=== PATIENT | male | born 1985 | race Asian ===

== ENCOUNTER 2018-02-20 15:35 | Emergency (ER) | payer OTHER, SELFPAY ==
[2018-02-20] VITALS (8 sets, daily range): BP systolic 119–162; BP diastolic 70–101; PULSE 75–111; RESP 12–22; TEMP 36.7; O2SAT 94–100
--- NOTE | 2018-02-20 16:56 | ED.AMS ---
HPI - Altered Mental Status General Chief Complaint: Urogenital-Male Stated Complaint: Lower Leg Infection/Edema Time Seen by Provider: 02/20/18 15:55 Source: EMS Mode of arrival: EMS Limitations: language barrier and altered mental status History of Present Illness HPI narrative: Patient is a 33-year-old male arrived by EMS. Extremely difficulty obtaining the patient's history. The patient only speaks Algerian. His mother only speaks Algerian. Full what I could attempt to find out the mother called 911 this morning for 2 reasons. She was concerned about his lower extremities and also his genitals and needing evaluation but she was also concerned that he is ?crazy ?and is being violent. This information was obtained secondary to using the Algerian translation line. During this time the patient was unwilling to come into the room to be evaluated and also was unwilling to talk with us through the translation line. Related Data Home Medications Medication Instructions Recorded Confirmed carbamazepine 200 mg PO TID 02/20/18 02/20/18 olanzapine 10 mg PO DAILY 02/20/18 02/20/18 risperidone 2 mg PO TID 02/20/18 02/20/18 sulfamethoxazole-trimethoprim 1 tab PO BID 02/20/18 02/20/18 [Bactrim DS] terbinafine HCl 250 mg PO DAILY 02/20/18 02/20/18 Allergies Allergy/AdvReac Type Severity Reaction Status Date / Time No Known Drug Allergies Allergy Verified 02/20/18 19:24 Review of Systems Review of Systems unobtainable due to mental status Exam Initial Vital Signs Initial Vital Signs: Vital Signs Temperature 98.1 F 02/20/18 18:23 Pulse Rate 111 H 02/20/18 18:23 Respiratory Rate 22 02/20/18 18:23 Blood Pressure 162/101 H 02/20/18 18:23 Pulse Oximetry 100 02/20/18 18:23 Const General: No cooperative Orientation: alert and awake Limitations: language barrier HENMT Head: normal to inspection and normocephalic Resp Effort & Inspection: normal respiratory effort Cardio Rate: tachycardic GI Inspection: non-distended Palpation: soft Other: Patient with significantly swollen scrotum and penis. His the size of a small watermelon. Is very firm to the touch. Erythematous. No drainage. Unable to palpate testicles. Skin Other: Patient with chronic stasis changes to bilateral lower extremities. Has what appears to be purulent discharge dried around his toes. Is foul smelling. No open sores. Neuro General: alert, awake and moves all extremities Other: Unable to obtain ate neuro exam secondary to the patient's willingness/ability to participate in the exam Extrem Other: Patient moves all 4 extremities. Has bilateral lower extremity non pitting edema from the hips to the toes Psych Appearance: disheveled Speech and Movement: agitated Mood: angry Affect: irritable affect Attitude: not cooperative Other: Difficult to obtain secondary to language barrier and patient's willingness to interact with the exam Course Orders Ordered: ED Orders 02/20/18 17:10 B Type Natriuretic Peptide Stat C-Reactive Protein Quant Stat Complete Blood Count AUTO DIFF Stat Comprehensive Metabolic Panel Stat Erythrocyte Sedimentation Rate Stat Lactate (Lactic Acid) Stat Lipase Stat Partial Thromboplastin Time Stat Prothrombin Time INR Stat 02/20/18 18:20 Urinalysis and Microscopic Stat Urine Drug Screen, Rapid Stat 02/20/18 18:30 CT abdomen pelvis w con Stat 02/20/18 18:45 Blood Culture Stat 02/20/18 19:14 XR chest 1V Stat Lorazepam (Ativan) 1 mg IV Q4HR PRN PRN Reason: Anxiety Discontinued Medications Diphenhydramine HCl (Benadryl) 50 mg IV NOW ONE Stop: 02/20/18 18:31 Last Admin: 02/20/18 18:34 Dose: 50 mg Diphenhydramine HCl (Benadryl) 50 mg IM NOW ONE Stop: 02/20/18 18:34 Last Admin: 02/20/18 18:34 Dose: 50 mg Furosemide (Lasix) 40 mg IV NOW ONE Stop: 02/20/18 20:34 Last Admin: 02/20/18 20:37 Dose: 40 mg Haloperidol (Haldol) 5 mg IM NOW ONE Stop: 02/20/18 18:31 Last Admin: 02/20/18 18:32 Dose: 5 mg Lorazepam (Ativan) 2 mg IM NOW ONE Stop: 02/20/18 18:30 Last Admin: 02/20/18 18:32 Dose: 2 mg Morphine Sulfate (Morphine) 4 mg IV NOW ONE Stop: 02/20/18 19:25 Last Admin: 02/20/18 19:58 Dose: 4 mg Olanzapine (Zyprexa Zydis) 20 mg PO NOW ONE Stop: 02/20/18 18:29 Last Admin: 02/20/18 18:31 Dose: 20 mg Vital Signs - 8 hr 02/20/18 18:23 02/20/18 19:45 02/20/18 20:03 Temperature 98.1 F Pulse Rate 111 H 94 H 88 Respiratory Rate 22 14 12 Blood Pressure [Right Arm] 162/101 H 145/100 H 129/90 Pulse Oximetry 100 96 96 02/20/18 20:28 02/20/18 20:48 Temperature Pulse Rate 87 87 Respiratory Rate 14 18 Blood Pressure [Right Arm] 132/86 Pulse Oximetry 95 94 MDM - Altered Mental Status Lab Data Attestation: I reviewed the patient's lab results. Result diagrams: 02/20/18 17:10 02/20/18 17:10 Lab Results 02/20/18 02/20/18 02/20/18 Range/Units 17:10 17:10 17:10 WBC 6.9 (4.5-11.0) X10^3/uL RBC 4.97 (4.5-5.9) X10^6/uL Hgb 14.0 (13.5-17.5) g/dL Hct 41.9 (41-53) % MCV 84.3 (80-100) fL MCH 28.2 (26-34) PG MCHC 33.4 (30-36) % RDW 16.6 H (11.6-14.8) % Plt Count 217 (150-400) X10^3/uL Neut % (Auto) 75.5 H (50-75) % Lymph % (Auto) 14.1 L (25-40) % [place] % (Auto) 9.3 (3-14) % Eos % (Auto) 0.6 L (2-4) % Baso % (Auto) 0.5 (0-2) % Neut # (Auto) 5200 (5979-5205) /uL ESR 11 (0-15) MM/HR PT 16.7 H (10.1-12.7) SECONDS INR 1.5 H (0.9-1.3) APTT 34 (26.4-36.2) SECONDS Sodium (137-145) mmol/L Potassium (3.4-5.1) mmol/L Chloride (98-107) mmol/L Carbon Dioxide (22-32) mmol/L BUN (9-20) mg/dL Creatinine (0.66-1.25) mg/dL Estimated GFR (>60) mL/min BUN/Creatinine Ratio (6-22) Glucose (70-100) mg/dL Lactate 1.8 (0.7-2.1) mmol/L Calcium (8.4-10.2) mg/dL Total Bilirubin (0.2-1.3) mg/dL AST (17-59) IU/L ALT (21-72) IU/L Alkaline Phosphatase (38-126) U/L C-Reactive Protein (<1.0) mg/dL B-Natriuretic Peptide (<100) Total Protein (6.3-8.2) g/dL Albumin (3.5-5.0) g/dL Globulin (1.7-4.1) g/dL Albumin/Globulin Ratio (1.0-2.8) Lipase (23-300) U/L Urine Color Urine Appearance Urine pH (4.5-8.0) Ur Specific Darden (1.000-1.035) Urine Protein (Negative) Urine Glucose (UA) (Normal) g/dL Urine Ketones (NEGATIVE) Urine Occult Blood (Negative) Urine Nitrate (Negative) Urine Bilirubin (NEGATIVE) Urine Urobilinogen (0.2) E.U./dL Ur Leukocyte Esterase (NEGATIVE) Urine RBC (0-5/HPF) Urine WBC (0-5/HPF) Ur Squamous Epith Cells Urine Bacteria (None) Ur Culture Indicated? Micro UA Comment Urine Opiates Screen (Negative) Ur Oxycodone Screen (Negative) Urine Methadone Screen (Negative) Ur Barbiturates Screen (Negative) U Tricyclic Antidepress (Negative) Ur Phencyclidine Scrn (Negative) Ur Amphetamines Screen (Negative) U Methamphetamines Scrn (Negative) Ur MDMA Scrn (Ecstasy) (Negative) U Benzodiazepines Scrn (Negative) Urine Cocaine Screen (Negative) U Marijuana (THC) Screen (Negative) 02/20/18 02/20/18 02/20/18 Range/Units 17:10 17:10 18:20 WBC (4.5-11.0) X10^3/uL RBC (4.5-5.9) X10^6/uL Hgb (13.5-17.5) g/dL Hct (41-53) % MCV (80-100) fL MCH (26-34) PG MCHC (30-36) % RDW (11.6-14.8) % Plt Count (150-400) X10^3/uL Neut % (Auto) (50-75) % Lymph % (Auto) (25-40) % [place] % (Auto) (3-14) % Eos % (Auto) (2-4) % Baso % (Auto) (0-2) % Neut # (Auto) (3971-6022) /uL ESR (0-15) MM/HR PT (10.1-12.7) SECONDS INR (0.9-1.3) APTT (26.4-36.2) SECONDS Sodium 132 L (137-145) mmol/L Potassium 4.7 (3.4-5.1) mmol/L Chloride 97 L (98-107) mmol/L Carbon Dioxide 24 (22-32) mmol/L BUN 11 (9-20) mg/dL Creatinine 0.90 (0.66-1.25) mg/dL Estimated GFR > 60.0 (>60) mL/min BUN/Creatinine Ratio 12.2 (6-22) Glucose 96 (70-100) mg/dL Lactate (0.7-2.1) mmol/L Calcium 8.8 (8.4-10.2) mg/dL Total Bilirubin 2.5 H (0.2-1.3) mg/dL AST 39 (17-59) IU/L ALT 45 (21-72) IU/L Alkaline Phosphatase 178 H (38-126) U/L C-Reactive Protein 2.8 H (<1.0) mg/dL B-Natriuretic Peptide 710.0 H (<100) Total Protein 7.1 (6.3-8.2) g/dL Albumin 3.8 (3.5-5.0) g/dL Globulin 3.3 (1.7-4.1) g/dL Albumin/Globulin Ratio 1.2 (1.0-2.8) Lipase 106 (23-300) U/L Urine Color Yellow Urine Appearance Clear Urine pH 6.5 (4.5-8.0) Ur Specific Darden <=1.005 (1.000-1.035) Urine Protein Trace H (Negative) Urine Glucose (UA) Negative (Normal) g/dL Urine Ketones Negative (NEGATIVE) Urine Occult Blood Trace-lysed (Negative) Urine Nitrate Negative (Negative) Urine Bilirubin Negative (NEGATIVE) Urine Urobilinogen 1.0 (0.2) E.U./dL Ur Leukocyte Esterase Negative (NEGATIVE) Urine RBC 0-1/hpf (0-5/HPF) Urine WBC None seen (0-5/HPF) Ur Squamous Epith Cells 0-1 /hpf Urine Bacteria None seen (None) Ur Culture Indicated? Cult not indicated Micro UA Comment Not Reportable Urine Opiates Screen (Negative) Ur Oxycodone Screen (Negative) Urine Methadone Screen (Negative) Ur Barbiturates Screen (Negative) U Tricyclic Antidepress (Negative) Ur Phencyclidine Scrn (Negative) Ur Amphetamines Screen (Negative) U Methamphetamines Scrn (Negative) Ur MDMA Scrn (Ecstasy) (Negative) U Benzodiazepines Scrn (Negative) Urine Cocaine Screen (Negative) U Marijuana (THC) Screen (Negative) 02/20/18 Range/Units 18:20 WBC (4.5-11.0) X10^3/uL RBC (4.5-5.9) X10^6/uL Hgb (13.5-17.5) g/dL Hct (41-53) % MCV (80-100) fL MCH (26-34) PG MCHC (30-36) % RDW (11.6-14.8) % Plt Count (150-400) X10^3/uL Neut % (Auto) (50-75) % Lymph % (Auto) (25-40) % [place] % (Auto) (3-14) % Eos % (Auto) (2-4) % Baso % (Auto) (0-2) % Neut # (Auto) (9973-6509) /uL ESR (0-15) MM/HR PT (10.1-12.7) SECONDS INR (0.9-1.3) APTT (26.4-36.2) SECONDS Sodium (137-145) mmol/L Potassium (3.4-5.1) mmol/L Chloride (98-107) mmol/L Carbon Dioxide (22-32) mmol/L BUN (9-20) mg/dL Creatinine (0.66-1.25) mg/dL Estimated GFR (>60) mL/min BUN/Creatinine Ratio (6-22) Glucose (70-100) mg/dL Lactate (0.7-2.1) mmol/L Calcium (8.4-10.2) mg/dL Total Bilirubin (0.2-1.3) mg/dL AST (17-59) IU/L ALT (21-72) IU/L Alkaline Phosphatase (38-126) U/L C-Reactive Protein (<1.0) mg/dL B-Natriuretic Peptide (<100) Total Protein (6.3-8.2) g/dL Albumin (3.5-5.0) g/dL Globulin (1.7-4.1) g/dL Albumin/Globulin Ratio (1.0-2.8) Lipase (23-300) U/L Urine Color Urine Appearance Urine pH (4.5-8.0) Ur Specific [place] (1.000-1.035) Urine Protein (Negative) Urine Glucose (UA) (Normal) g/dL Urine Ketones (NEGATIVE) Urine Occult Blood (Negative) Urine Nitrate (Negative) Urine Bilirubin (NEGATIVE) Urine Urobilinogen (0.2) E.U./dL Ur Leukocyte Esterase (NEGATIVE) Urine RBC (0-5/HPF) Urine WBC (0-5/HPF) Ur Squamous Epith Cells Urine Bacteria (None) Ur Culture Indicated? Micro UA Comment Urine Opiates Screen Negative (Negative) Ur Oxycodone Screen Negative (Negative) Urine Methadone Screen Negative (Negative) Ur Barbiturates Screen Negative (Negative) U Tricyclic Antidepress Negative (Negative) Ur Phencyclidine Scrn Negative (Negative) Ur Amphetamines Screen Negative (Negative) U Methamphetamines Scrn Negative (Negative) Ur MDMA Scrn (Ecstasy) Negative (Negative) U Benzodiazepines Scrn Negative (Negative) Urine Cocaine Screen Negative (Negative) U Marijuana (THC) Screen Negative (Negative) Imaging Data Chest x-ray: Radiologist's impression: PROCEDURE: XR CHEST 1V INDICATIONS: fluid retention, chf? TECHNIQUE: One view of the chest was acquired. COMPARISON: None. FINDINGS: Surgical changes and devices: None. Lungs and pleura: No pleural effusions or pneumothorax. Mild congestive changes are seen. No definite focal infiltrate. Mediastinum: Mediastinal contours appear normal. Heart size is markedly enlarged. Bones and chest wall: No suspicious bony lesions. Overlying soft tissues appear unremarkable. IMPRESSION: Cardiomegaly and mild pulmonary vascular congestion. No definite focal infiltrate or gross pneumothorax. Dictated by: Srini Min M.D. on 02/20/2018 at 19:37 Approved by: Srini Min M.D. on 02/20/2018 at 19:38 CT scan - abdomen: Radiologist's impression: [address] [address] [address] Scan Report Signed Patient: Ramon Bray [facility]#: [id number] : 1985Acct:[id number] Age/Sex: 33 / MDate of Service: 02/20/18 Loc: ED Accession Number: [id number] Procedure: CT abdomen pelvis w con Ordering Provider: Tirso Whitney D.O. PROCEDURE: CT ABDOMEN PELVIS W CON INDICATIONS: scrotal swelling TECHNIQUE: After the administration of intravenous contrast, 5 mm thick sections acquired from the diaphragm to the symphysis. 5 mm coronal and sagittal reformats were acquired. For radiation dose reduction, the following was used: automated exposure control, adjustment of mA and/or kV according to patient size. COMPARISON: None. FINDINGS: Image quality: Excellent. ABDOMEN: Lung bases: Dependent atelectasis in posterior aspect of bilateral lung bases are seen. There is suggestion of mild pulmonary edema. Heart size is enlarged, no pericardial effusion. Solid organs: Liver is normal in size and enhancement. Decreased liver parenchymal density is noted suggestive of hepatic steatosis. Gallbladder shows no gross abnormality. Biliary system is non dilated. Pancreas enhances normally. Spleen is normal in size and enhancement. No adrenal nodules. Kidneys demonstrate normal size and enhancement, without hydronephrosis. Peritoneum and bowel: Bowel loops demonstrate normal wall thickness and caliber. Trace amount of free fluid adjacent to right hepatic lobe inferior aspect is seen. No gross free air. Small hiatal hernia is seen. Appendix is visualized and is within normal limits. Mild fecal stasis in the colon is noted. Nodes and vessels: No retroperitoneal or mesenteric adenopathy by size criteria. Aorta and inferior vena cava are normal in size. Miscellaneous: No ventral hernias. PELVIS: Genitourinary: Bladder wall thickness is normal. Miscellaneous: No inguinal hernias or adenopathy. There is diffuse anasarca. Bones: No suspicious bony lesions. No vertebral body compression fractures. IMPRESSION: 1. Dependent atelectasis in posterior aspect of bilateral lung bases. Mild pulmonary edema. Diffuse anasarca. 2. Cardiomegaly, no pericardial effusion. 3. Mild constipation. No bowel obstruction. No free air. Trace amount of free fluid adjacent to the lower portion of right hepatic lobe. Dictated by: Srini Min M.D. on 02/20/2018 at 19:38 Approved by: Srini Min M.D. on 02/20/2018 at 19:46 [facility] Narrative Medical decision making narrative: Upon arrival to the emergency department patient was unable/unwilling to participate in any the exam per any history taking. His mother provided very limited history. She was unable to provide any mental health diagnosis and just stated that he was ?crazy ?I was able to talk with her through the translation line. Unsure if the mother has power of county attorney over the patient. I have concerned the patient does not understand these questions. I have no paperwork stating that the mother was the power county attorney or there was any other power of county attorney. The mother does not know the patient's primary care doctor. She was unable to provide exact history of why the patient was here but did state that he was ?angry ? and combative . Patient would not go into a exam room. He was walking around the emergency department also shouting. Did not make any other aggressive movements toward any providers or staff. I could see from just looking at him that he did have a significant issue going on with his genitals and also his lower extremity. This did seem to be 1 reason why the patient's mother called the ambulance this morning. After discussion with the mother and her description of the patient being combative at home and also the findings that I could see just externally with evaluating the patient while standing in the emergency department I did feel that he could have a significant medical issue. I felt that he did not have the capacity to make decisions. I told the mother that since the patient was not cooperative and would not talk to me through the translation line that there could be a situation where we could have to give the patient sedation medication and also use the police to help us secure the patient for an evaluation. The mother expressed understanding and agreement with this. This discussion was had through the translation line. The police did help us escort the patient into an exam room. He was cooperative with this. I was able to for short period of time talk with the patient through the translation line. The patient did toe that the year was 2018 but he thought that he was in [place]. He obviously did not know what was going on. He stated that he did not have any problems with his lower extremities and also his genitals. He did allow me to examine him. He did allow us to place an IV and draw blood. After this discussion with him and the supervisor floor assembly stating that the patient was not making sense and his answers to my questions I did have a strong feeling that the patient continue to not have the capacity to make decisions. After his examination I felt that life-threatening problem such as Monica's gangrene. We attempted to obtain medical records from his primary care doctor's office but were unable to obtain these. I did discuss the case with the [facility] who stated that they could only involuntarily admit the patient for mental health treatment not for medical treatment. Secondary to my concern for life-threatening illness my continue concern for his capacity to make decisions and the need for a CT scan of his abdomen pelvis we did chemically restrain him with Haldol Ativan and Benadryl. This did calm him enough to obtain the CT scan. Prior to this I did discuss this with hospital administration (Berta Hendricks) that I was going to chemically restrain him because of my concern for his medical issues. She did express understanding of this. The patient tolerated the CT scan without problems. He has been calm. His lab work has returned and he does have an elevated BNP however no elevated white blood cell count. Normal renal function. Urine does not show any signs of infection. The CT scan does not show any signs of an acute infection over does show a very edematous scrotum. We were able to pass a Irwin without much problems and did have return of 1.5 L of urine. This was after the patient urinated 1 L prior to [address] scan. He was given 40 mg of Lasix here in the emergency department for diuresis. As needed Ativan was ordered. I feel that given his mental state, uncertainty of how well he is maintained on his mental health medications, his obvious bilateral lower extremity edema most likely what is causing his urinary retention, the language barrier, and my uncertainty as to his follow-up I feel that admission to the hospital is warranted and would be the best thing for the patient. I have no signs of an infection today. I held on any antibiotics. I discussed the case with Dr. Vasquez at [facility] who accepts the patient in transfer. I did discussed the transfer with the patient's mother with her brother, the patient's uncle, whose name is Leighton. His phone number is [phone]. He states that he can be contacted at any time if needed in order to contact the patient's mother. He speaks Danish very well. Threw him I was able to tell the patient's mother his current condition and the plans for transfer. The patient's mother stated that she gives consent for all medical treatments needed. She had no further questions. Care turned over to night provider at 2200 to watch the patient overnight with anticipation of transfer tomorrow morning. Discharge Plan Departure Patient Disposition: [facility] Clinical Impression: Acute urinary retention, Altered mental status, Schizophrenia, Edema, peripheral, Cardiomegaly Prescriptions: No Action olanzapine 10 mg Tablet 10 mg PO DAILY RF: 0 sulfamethoxazole-trimethoprim [Bactrim DS] 800-160 mg Tablet 1 tab PO BID RF: 0 risperidone 2 mg Tablet 2 mg PO TID RF: 0 carbamazepine 200 mg Tablet 200 mg PO TID RF: 0 terbinafine HCl 250 mg Tablet 250 mg PO DAILY RF: 0
[2018-02-20 17:27] LABS: Add Manual Diff / Slide Review NO; Basophils Percent Auto 0.5 % (0-2); Eosinophils Percent Auto 0.6 % (2-4); Hematocrit 41.9 % (41-53); Lymphocytes Percent Auto 14.1 % (25-40); Mean Corpuscular HGB Conc 33.4 % (30-36); Mean Corpuscular Hemoglobin 28.2 PG (26-34); Mean Corpuscular Volume 84.3 fL (80-100); Monocytes Percent Auto 9.3 % (3-14); Neutrophils Absolute Auto 5200 /uL (3000-5900); Neutrophils Percent Auto 75.5 % (50-75); Platelet Count 217 X10^3/uL (150-400); Red Blood Cell Count 4.97 X10^6/uL (4.5-5.9); Red Cell Distribution Width 16.6 % (11.6-14.8); White Blood Cell Count 6.9 X10^3/uL (4.5-11.0)
[2018-02-20 17:37] LABS: INR 1.5 (0.9-1.3); Prothrombin Time 16.7 SECONDS (10.1-12.7)
[2018-02-20 17:40] LABS: PTT Partial Thromboplastin Tim 34 SECONDS (26.4-36.2)
[2018-02-20 17:41] LABS: Lactate (Lactic Acid) 1.8 mmol/L (0.7-2.1)
[2018-02-20 17:44] LABS: C-Reactive Protein Quant 2.8 mg/dL (<1.0); Lipase 106 U/L (23-300)
--- NOTE | 2018-02-20 17:45 | PC.NURSE ---
1745 - summative note thus far: Police called to assist ED staff to get patient into room 13. After about 30 minutes of coaxing patient arrived to room 13 and with the assistance of interpretor was able to talk patient to allowing us to administer 20 mg of zyprexa, obtain bloodwork and establish an IV. Patient resting quietly on bed and so we released police. As soon as police left, police saw his mom on a chair in hallway and attempted to leave ED. Room 13 door closed to prevent this. alerted. 0558 urinal to patient
[2018-02-20 17:55] LABS: Erythrocyte Sedimentation Rate 11 MM/HR (0-15)
--- NOTE | 2018-02-20 18:30 | DI.CT.S_ITS ---
PROCEDURE: CT ABDOMEN PELVIS W CON INDICATIONS: scrotal swelling TECHNIQUE: After the administration of intravenous contrast, 5 mm thick sections acquired from the diaphragm to the symphysis. 5 mm coronal and sagittal reformats were acquired. For radiation dose reduction, the following was used: automated exposure control, adjustment of mA and/or kV according to patient size. COMPARISON: None. FINDINGS: Image quality: Excellent. ABDOMEN: Lung bases: Dependent atelectasis in posterior aspect of bilateral lung bases are seen. There is suggestion of mild pulmonary edema. Heart size is enlarged, no pericardial effusion. Solid organs: Liver is normal in size and enhancement. Decreased liver parenchymal density is noted suggestive of hepatic steatosis. Gallbladder shows no gross abnormality. Biliary system is non dilated. Pancreas enhances normally. Spleen is normal in size and enhancement. No adrenal nodules. Kidneys demonstrate normal size and enhancement, without hydronephrosis. Peritoneum and bowel: Bowel loops demonstrate normal wall thickness and caliber. Trace amount of free fluid adjacent to right hepatic lobe inferior aspect is seen. No gross free air. Small hiatal hernia is seen. Appendix is visualized and is within normal limits. Mild fecal stasis in the colon is noted. Nodes and vessels: No retroperitoneal or mesenteric adenopathy by size criteria. Aorta and inferior vena cava are normal in size. Miscellaneous: No ventral hernias. PELVIS: Genitourinary: Bladder wall thickness is normal. Miscellaneous: No inguinal hernias or adenopathy. There is diffuse anasarca. Bones: No suspicious bony lesions. No vertebral body compression fractures. IMPRESSION: 1. Dependent atelectasis in posterior aspect of bilateral lung bases. Mild pulmonary edema. Diffuse anasarca. 2. Cardiomegaly, no pericardial effusion. 3. Mild constipation. No bowel obstruction. No free air. Trace amount of free fluid adjacent to the lower portion of right hepatic lobe. Dictated by: Srini Min M.D. on 02/20/2018 at 19:38 Approved by: Srini Min M.D. on 02/20/2018 at 19:46
[2018-02-20] MEDS: OLANZapine ODT 10 MG TAB 20 MG PO (18:31)
[2018-02-20] MEDS: HALOPERIDOL 5 MG/ML VIAL IM (18:32)
[2018-02-20] MEDS: LORazepam 2 MG/ML SYRINGE IM (18:32)
[2018-02-20 18:34] LABS: Bacteria Urine None Seen; WBC Urine None Seen (0-5/HPF)
[2018-02-20] MEDS: diphenhydrAMINE 50 MG/ML VIAL IM (18:34)
[2018-02-20] MEDS: diphenhydrAMINE 50 MG/ML VIAL IV (18:34)
--- NOTE | 2018-02-20 18:42 | PC.NURSE ---
Patient resting on bed, Rn's drawing blood for lab test,
[2018-02-20 18:46] LABS: Appearance Urine UA CLEAR; Bilirubin Urine UA NEGATIVE (NEGATIVE); Color Urine UA YELLOW; Glucose Urine UA NEGATIVE (Normal); Ketones Urine UA NEGATIVE (NEGATIVE); Leukocyte Esterase Urine UA NEGATIVE (NEGATIVE); Nitrite Urine UA Negative (Negative); Occult Blood Urine UA TRACE-LYSED (Negative); Protein Urine UA TRACE (Negative); Specific Gravity Urine UA <=1.005 (1.000-1.035); pH Urine UA 6.5 (4.5-8.0)
[2018-02-20 18:54] LABS: Urine Amphetamines Negative (Negative); Urine Barbiturates Negative (Negative); Urine Benzodiazepines Negative (Negative); Urine Cocaine Negative (Negative); Urine MDMA Negative (Negative); Urine Methamphetamines Negative (Negative); Urine Morphine/Opi cutoff 2000 Negative (Negative); Urine Phencyclidine Negative (Negative); Urine Tetrahydrocannabinol Negative (Negative)
[2018-02-20 18:55] LABS: Urine Methadone Negative (Negative); Urine Oxycodone Negative (Negative); Urine Tricyclic Antidepressant Negative (Negative)
[2018-02-20 18:59] LABS: Culture Indicated Urine Cult Not Indicated; RBC Urine 0-1/HPF (0-5/HPF); Squamous Epithelial Cell Urine 0-1 /HPF
--- NOTE | 2018-02-20 19:14 | DI.RAD.S_ITS ---
PROCEDURE: XR CHEST 1V INDICATIONS: fluid retention, chf? TECHNIQUE: One view of the chest was acquired. COMPARISON: None. FINDINGS: Surgical changes and devices: None. Lungs and pleura: No pleural effusions or pneumothorax. Mild congestive changes are seen. No definite focal infiltrate. Mediastinum: Mediastinal contours appear normal. Heart size is markedly enlarged. Bones and chest wall: No suspicious bony lesions. Overlying soft tissues appear unremarkable. IMPRESSION: Cardiomegaly and mild pulmonary vascular congestion. No definite focal infiltrate or gross pneumothorax. Dictated by: Srini Min M.D. on 02/20/2018 at 19:37 Approved by: Srini Min M.D. on 02/20/2018 at 19:38
[2018-02-20 19:21] LABS: Alanine Aminotransferase 45 IU/L (21-72); Albumin 3.8 g/dL (3.5-5.0); Albumin Globulin Ratio 1.2 (1.0-2.8); Alkaline Phosphatase 178 U/L (38-126); Aspartate Aminotransferase 39 IU/L (17-59); BUN Creatinine Ratio 12.2 (6-22); Bilirubin Total 2.5 mg/dL (0.2-1.3); Blood Urea Nitrogen 11 mg/dL (9-20); Calcium 8.8 mg/dL (8.4-10.2); Carbon Dioxide 24 mmol/L (22-32); Chloride 97 mmol/L (98-107); Estimated Glomerular Filt Rate > 60.0 mL/min (>60); Globulin 3.3 g/dL (1.7-4.1); Glucose 96 mg/dL (70-100); HEMOLYSIS < 15 (0-50); Potassium 4.7 mmol/L (3.4-5.1); Sodium 132 mmol/L (137-145); Total Protein 7.1 g/dL (6.3-8.2)
--- NOTE | 2018-02-20 19:32 | PC.NURSE ---
Medications updated. Mother states he has not taken his medications since November. Recently prescribed abx from [facility]. Will call for records.
[2018-02-20] MEDS: MORPHINE 4 MG/ML INJ IV (19:58)
--- NOTE | 2018-02-20 20:21 | PC.NURSE ---
Irwin placed w/ assistance of Dr. Whitney. Penis grossly edematous. Dr. Whitney reduced edema to reveal glands. Irwin placed w/o difficulty. > 1000 cc out. Pt tolerated very well. Now sleeping, easily arousable. [id number] grossly edemetous and weeping. Sling fashioned out of clean pillow case for increased comfort. Skin: ? of deep tissue injury on bottom of both feet. Non blanching areas that do not appear to be dirt or callous. Edema noted in bilateral legs, from feet to upper thigh, hands to elbows, sacral area. Areas on bilateral feet weeping.
[2018-02-20] MEDS: FUROSEMIDE 40 MG/4 ML VIAL IV (20:37)
--- NOTE | 2018-02-20 20:49 | PC.NURSE ---
Pt oxygen saturations swing to low 80s when asleep and self resolve to high 90s. No acute distress. Easy work of breathing. ? if sleep apnea at baseline.
[2018-02-21] VITALS (10 sets, daily range): BP systolic 130–149; BP diastolic 64–106; PULSE 79–99; RESP 15–21; TEMP 36.3–37.1; O2SAT 97–100
[2018-02-21] MEDS: LORazepam 2 MG/ML SYRINGE 1 MG IV ×2 (01:36→14:18)
--- NOTE | 2018-02-21 01:52 | PC.NURSE ---
Pt noted becoming more restless in bed, removing wires and moving around. PRN ativan given per order for safety. Pt now resting with eyes closed, resps even/unlabored.
[2018-02-21 07:45] LABS: Creatine Kinase 196 U/L (55-170)
--- NOTE | 2018-02-21 07:49 | PC.NURSE ---
Patient with +2 pitting edema from mid calfs to toes - bilaterally;
[2018-02-21 07:58] LABS: Troponin I 0.073 ng/mL (0.01-0.034)
--- NOTE | 2018-02-21 08:00 | PC.NURSE ---
No sensation deficits noted; Patient doesn't speak greek;
[2018-02-21 08:01] LABS: CKMB % Relative Index 1.4 % (1.5-5.0); Creatine Kinase MB 2.75 ng/mL (<2.37)
--- NOTE | 2018-02-21 08:09 | PC.NURSE ---
Scrotum largely swollen; weeping yellowish-brown secretions;
--- NOTE | 2018-02-21 08:12 | DI.US.S_ITS ---
PROCEDURE: US SCROTUM INDICATIONS: scrotal swelling TECHNIQUE: Real-time scanning was performed of the scrotum and testicles, with image documentation. Color and pulse Doppler interrogation was performed of both testicles. COMPARISON: [facility], CT, CT ABDOMEN PELVIS W CON, 02/20/2018, 18:56. FINDINGS: Right: Testicle is normal in size at 3.6 x 2.7 x 2.6 cm, and homogenous in echotexture. Epididymis is normal in overall size and morphology. No hydrocele or varicoceles. Overlying scrotal skin is mildly thickened. Left: Testicle is normal in size at 3.6 x 2.9 x 2.5 cm, and homogeneous in echotexture. Epididymis is normal in overall size and morphology. No hydrocele. Mild varicocele. Overlying scrotal skin is mildly thickened. Doppler: Color and pulse Doppler demonstrate normal and symmetric arterial flow in both testicles. IMPRESSION: 1. Mild appearance of thickening of the scrotal skin bilaterally. This is nonspecific and could be related to infection/inflammation. Dictated by: Jolene Liao M.D. on 02/21/2018 at 8:36 Approved by: Jolene Liao M.D. on 02/21/2018 at 8:41
[2018-02-21] MEDS: FUROSEMIDE 20 MG/2 ML VIAL IV (08:47)
--- NOTE | 2018-02-21 09:19 | DIET.PN ---
Brought patient breakfast tray as well as extra food including applesauce, pudding
--- NOTE | 2018-02-21 09:32 | PC.NURSE ---
Gave patient washcloth to wash face and helped him wash off his chapped lips and put chapstick on his lips
[2018-02-21 09:37] LABS: BUN Creatinine Ratio 13.8 (6-22); Blood Urea Nitrogen 11 mg/dL (9-20); Calcium 8.7 mg/dL (8.4-10.2); Carbon Dioxide 27 mmol/L (22-32); Chloride 103 mmol/L (98-107); Estimated Glomerular Filt Rate > 60.0 mL/min (>60); Glucose 76 mg/dL (70-100); HEMOLYSIS 20 (0-50); Potassium 3.8 mmol/L (3.4-5.1); Sodium 140 mmol/L (137-145)
--- NOTE | 2018-02-21 11:02 | PC.NURSE ---
Discussed resuming routine home medication with Dr. Clark; No orders given to restart medication;
--- NOTE | 2018-02-21 14:11 | PC.NURSE ---
Patient with sleep apnea (20-30 seconds) with 02 sats decreased to mid 80's; Applied O2;
--- NOTE | 2018-02-21 14:14 | PC.NURSE ---
Patient pulled out IV in right AC;
--- NOTE | 2018-02-21 14:20 | PC.NURSE ---
Patient sleeping with eyes closed;
--- NOTE | 2018-02-21 14:22 | PC.NURSE ---
Patient with sleep apnea with O2 sats to mid 80's;
== END 2018-02-21 15:14 | disposition short-term general hospital (02) ==
PROVIDERS: Emergency Medicine; Emergency Provider Emergency Medicine
DX: F20.9 Schizophrenia, unspecified (principal); I51.7 Cardiomegaly; R33.8 Other retention of urine; R41.82 Altered mental status, unspecified; R60.9 Edema, unspecified
CPT/HCPCS: 36415; 36591; 51701; 71045; 74177; 76870; 80048; 80053; 80305; 81001; 82550; 82553; 83605; 83690; 83880; 84484; 85025; 85610; 85651; 85730; 86140; 87040; 87070; 87077; 87147; 87186; 87205; 93005; 93010; 96372; 96374; 96375; 99285; 99291; J1200; J1630; J1940; J2060; J2270; Q9967